=== PATIENT | female | born 1950 | race Caucasian/White ===

== ENCOUNTER → 2017-07-17 | Outpatient (CLI) | payer OTHER, MEDICARE ==
[~2017-07-17] MED LIST: ASCORBIC ACID500 M3 PO; BUSPIRONE HCL15 MG PO; LINZESS145 MCG PO; OMEPRAZOLE40 M1 PO; SIMVASTATIN40 MG PO; SYNTHROID100 MCG PO; TRAMADOL HCL50 MG PO; VENLAFAXINE HC150 M1 PO; VITAMIN D32000 UNI1 PO
== END | disposition home or self-care (01) ==
LOC: NUC 06:48
DX: R10.13 Epigastric pain (principal); K21.9 Gastro-esophageal reflux disease without esophagitis
CPT/HCPCS: 78264; A9541